=== PATIENT | female | born 1975 | race Two or more races ===

== ENCOUNTER 2024-07-16 05:50 | Day surgery (SDC) | payer MEDICAID, SELFPAY ==
--- NOTE | 2024-07-10 07:00 | EKG_ITS ---
[facility] Test Date: 2024-07-10 Pat Name: AIMEE CHEEMA Department: Room: - Gender: Female [employer]: RT STUDENT : 1975 Requested By: Scotty Hernandez Order Number: [id number] Reading MD: Scotty Hernandez Measurements Intervals Kila Rate: 72 P: 52 FL: 146 QRS: 61 QRSD: 90 T: 30 QT: 362 QTc: 397 Interpretive Statements SINUS RHYTHM INDETERMINATE AXIS LOW QRS VOLTAGE IN PRECORDIAL LEADS [QRS DEFLECTION < 1.0 mV IN CHEST LEADS] No previous ECG available for comparison /[id number]
[2024-07-10 08:24] VITALS: BMI 28.0
[2024-07-10 09:08] LABS: Basophils # (Auto) 0.1 Thou/mm3 (0.0-0.2); Basophils % (Auto) 1 % (0-2.5); Eosinophils # (Auto) 0.1 Thou/mm3 (0.0-0.5); Eosinophils % (Auto) 1 % (0-10); Hematocrit 41.3 % (36.0-46.0); Hemoglobin 13.3 g/dL (12.0-16.0); Immature Granulocytes % (Auto) 0 % (0-0); Immature Granulocytes Auto 0.02 Thou/mm3 (0.00-0.00); Lymphocytes % (Auto) 27 % (10-50); Mean Corpuscular HGB Conc 32.2 g/dl (31.0-37.0); Mean Corpuscular Hemoglobin 28.2 pg (25.0-35.0); Mean Corpuscular Volume 88 fL (80-100); Monocytes # (Auto) 0.4 Thou/mm3 (0.0-0.8); Monocytes % (Auto) 6 % (0-12); Neutrophils # (Auto) 4.9 Thou/mm3 (1.8-7.7); Neutrophils % (Auto) 65 % (37-80); Nucleated Red Blood Cell % 0 /100 WBC (0); Platelet Count 268 Thou/mm3 (140-440); RDW Standard Deviation 42.8 fL (36.4-46.3); Red Blood Count 4.72 Miln/mm3 (4.00-5.20); White Blood Count 7.6 Thou/mm3 (3.6-11.0)
[2024-07-10 09:19] LABS: HCG,Qualitative Serum Negative
[2024-07-10 09:22] LABS: Anion Gap 8 (7-16); BUN/Creatinine Ratio 18 Ratio (12-20); Blood Urea Nitrogen 11 mg/dL (9-23); Calcium 9.4 mg/dL (8.3-10.6); Carbon Dioxide 26.9 mMol/L (20.0-31.0); Chloride 104 mMol/L (98-107); Creatinine (Component) 0.6 mg/dL (0.6-1.3); Glucose 92 mg/dL (74-106); Osmolality,Calculated 276 (275-295); Potassium 4.4 mMol/L (3.4-5.1); Sodium 139 mMol/L (136-145); eGFR > 60 See Note
[2024-07-10 09:23] LABS: Partial Thromboplastin Time 27.3 Seconds (22.0-36.0); Prothrombin Time 10.6 Seconds (9.0-12.2)
[2024-07-16] VITALS (8 sets, daily range): BP systolic 108–116; BP diastolic 66–78; PULSE 78–97; RESP 12–19; TEMP 36.2–36.7; O2SAT 96–99; BMI 28.1
[2024-07-16] MEDS: RINGERS LACTATED 1000 ML 1,000 ML 20 ML IV (06:40)
--- NOTE | 2024-07-16 08:36 | PD.SUROPNT ---
Date of Procedure 07/16/24 Pre Op Diagnosis Symptomatic varicose veins left lower extremity Post Op Diagnosis Same as preop diagnosis Procedure Varicose vein excisions left lower extremity requiring 38 separate incisions Findings All marked varicose veins were successfully excised or disrupted Procedure Description With the patient standing in the preop area all varicose veins to the be treated were carefully marked with a sharpie pen. The patient was then brought to the operating room and general anesthesia was induced. A timeout was performed. The varicose veins were removed by making a small skin leo in the marked areas with a #11 blade then bluntly enlarging the incision with a mosquito clamp and serially excising them or disrupting them with a mosquito clamp or vein hook. When all veins were either successfully removed or disrupted the leg was cleaned and the incisions were reapproximated with Steri-Strips. A sterile compressive bandage was then applied followed by an Arnie wrap and the patient woke up from anesthesia and was went to recovery in stable condition Anesthesia other (Laryngeal mask anesthesia) Pathology / specimen Other (Left lower extremity varicose veins) Estimated Blood Loss 75 Condition Stable Disposition PACU Surgeon Scotty Hays MD Surgical Staff Operation Date: 07/16/24 07:30 Case Staff Anesthesiologist: Luis Grimes RN First Assistant: Mackenzie Scott
--- NOTE | 2024-07-16 08:46 | SUR.PHASEI ---
pt received from OR in recovery bay 1. pt asleep but responds to voice, breathing unlabored on room air. v/s stable. pt dressing to left lower extremity cdi. report received from Dr. Grimes and Irene CRUZ.
[2024-07-16] MEDS: ONDANSETRON INJ 2 MG/ML INJ 2 ML 4 MG IV (09:28)
[2024-07-16] MEDS: ACETAMINOPHEN IVPB 1,000 MG/100 ML VIAL 250 MG IV (09:35)
[2024-07-16] MEDS: METOCLOPRAMIDE INJ 5 MG/ML VIAL 2 ML 10 MG IVP (09:38)
--- NOTE | 2024-07-16 10:16 | SUR.PHASEII ---
pt able to tolerate oral fluids without difficulty swallowing or vomiting.
--- NOTE | 2024-07-16 10:23 | SUR.PHASEII ---
pt awake and alert, breathing unlabored on room air. v/s stable. pt dressing to left lower extremity cdi after ambulation. pt able to ambulate to wheelchair with steady gait. d/c instructions given with mary in room using bread wrapper Jose Maria Goins08, all questions answered. pt d/c via wheelchair with all belongings.
== END 2024-07-16 10:23 | disposition home or self-care (01) ==
PROVIDERS: Anesthesiology; PCP Nurse Practitioner Family; Referring Provider Surgery Vascular Surgery; Visit Provider Surgery Vascular Surgery
PROC: (CPT 36475; principal; 2024-07-16 07:30)
DX: I83.812 Varicose veins of left lower extremity with pain (principal); Z01.810 Encounter for preprocedural cardiovascular examination
CPT/HCPCS: 37766; 37765; 36415; 80048; 84703; 85025; 85610; 85730; 93005; A4217; C1894; J0131; J0690; J1100; J1885; J2250; J2405; J2704; J2765; J3010; J7050; J7120